=== PATIENT | male | born 1940 | race Caucasian/White ===

== ENCOUNTER 2017-08-10 08:10 | Observation (INO) | payer OTHER ==
--- NOTE | 2017-08-10 08:24 | EDPHY ---
H & P Time Seen by Provider: 08/10/17 08:24 HPI/ROS: CHIEF COMPLAINT: Right leg weakness HISTORY OF PRESENT ILLNESS: Patient is a 77-year-old male brought here by EMS with concern for right leg weakness that started around 730 this morning. Patient states he was doing his normal activities this morning including physical therapy for his chronic hip and low back pain and developed sudden weakness in the right leg stating the leg"gave out". He has never had this happen before. He denies any pain, numbness or paresthesias associated with the weakness. Additionally denies any chest pain, shortness of breath, arm weakness or numbness, trouble speaking, dizziness, vision changes, ataxia. He has not been able to ambulate since then. According to EMS his blood sugar was above 200. He states he had just eaten prior to transport. He has no history of diabetes. He does have a history of hypertension and dyslipidemia. Denies any drug or alcohol use or smoking. He lives at home with his . REVIEW OF SYSTEMS: Constitutional: No fever, no chills. Eyes: No discharge. ENT: No sore throat. Cardiovascular: No chest pain, no palpitations. Respiratory: No cough, no shortness of breath. Gastrointestinal: No abdominal pain, no vomiting. Genitourinary: No hematuria. Musculoskeletal: No back pain. Skin: No rashes. Neurological: No headache. (Bimal Jc) Physical Exam: General Appearance: Alert and no distress. Eyes: Pupils equal and round no injection. Respiratory: Chest is nontender, lungs are clear to auscultation. Cardiac: regular rate and rhythm. Gastrointestinal: Abdomen is soft and nontender, no masses, bowel sounds normal. Musculoskeletal: Neck is supple and nontender. Equal strength and sensation in bilateral upper extremities with no ulnar drift. Equal grasp. Equal strength sensation and deep tendon reflexes in bilateral lower extremities. Patient was unsteady in his gait but able to ambulate. Extremities have full range of motion and are nontender. Skin: No rashes or lesions. Neuro: Cranial nerves grossly intact. Pupils PERRLA with no nystagmus. Alert and oriented x3. Ambulatory (Bimal Jc) Constitutional: Initial Vital Signs Temperature (C) 36.7 C 08/10/17 08:15 Heart Rate 84 08/10/17 08:15 Respiratory Rate 18 08/10/17 08:15 Blood Pressure 137/82 H 08/10/17 08:15 O2 Sat (%) 93 08/10/17 08:15 O2 Delivery Mode Room Air Allergies/Adverse Reactions: amoxicillin Allergy (Verified 08/10/17 13:36) Penicillins Allergy (Verified 08/10/17 13:36) CILLINGS Allergy (Uncoded 05/11/10 15:58) Home Medications: Medication Instructions Recorded ASPIRIN [Easprin] 81 mg PO HS 05/11/10 Atenolol [Atenolol 100 mg] 100 mg PO DAILY 05/11/10 SIMVASTATIN [Zocor] 40 mg PO HS 05/11/10 Lisinopril/Hctz 20/12.5MG 1 ea PO DAILY 08/10/17 [Zestoretic/Prinzide 20/12.5MG (*)] Medical Decision Making - Diagnostics Imaging Results: Imaging Impressions Head CT 08/10/17 08:45 Impression: 1. No acute intracranial findings. If symptoms persist and clinical suspicion warrants, consider MRI. 2. Diffuse cerebral atrophy with periventricular and subcortical low attenuation consistent with chronic microvascular ischemic gliosis. Findings discussed with Bimal Jc 08/10/2017 at 9:41. ED Course/Re-evaluation: 0840: This patient was seen and examined by me. He presents with right lower extremity weakness, now resolved. Neurologic exam is normal, including LLE strength. c/w TIA. I agree with the assessment and plan. (Lolly Mckinney) 77-year-old male history of dyslipidemia and hypertension here with sudden onset of right lower extremity weakness. Time of arrival in the emergency room he has no focal deficits on exam in particular no unilateral leg weakness and cranial nerves were grossly intact. CT scan of head noncontrast reveals no bleed or mass or signs of ischemia. Patient is able to ambulate but does feel slightly weak in the leg. Repeat exam again shows no weakness or decreased sensation and does have normal DTRs. Patient be admitted for further workup for possible TIA. He is agreeable with this plan. He was given aspirin in the emergency room. (Bimal Jc) Differential Diagnosis: Differential diagnosis includes though is not limited to cardiac dysrhythmia, CVA, TIA, GI bleed, sepsis, hypoglycemia. (Danforth,Lolly S) CVA, to car brain mass, electrolyte disturbance, cardiac arrhythmia (Bimal Jc) - Data Points Laboratory Results: Laboratory Results 08/10/17 08:12 08/10/17 08:12 08/10/17 08/10/17 08/10/17 10:19 08:12 08:12 WBC RBC Hgb Hct MCV MCH MCHC RDW Plt Count Sodium 142 mEq/L mEq/L (135-145) Potassium 3.7 mEq/L mEq/L (3.3-5.0) Chloride 103 mEq/L mEq/L (97-110) Carbon Dioxide 23 mEq/l mEq/l (22-31) Anion Gap 16 mEq/L mEq/L (8-16) BUN 29 mg/dL H mg/dL (7-23) Creatinine 0.8 mg/dL mg/dL (0.7-1.3) Estimated GFR > 60 Glucose 184 mg/dL H mg/dL (70-100) Hemoglobin A1c 5.9 % % (4.0-6.0) Estim Average Glucose 123 mg/dL mg/dL (68-126) Calcium 9.3 mg/dL mg/dL (8.5-10.4) POC Troponin I 0.01 ng/mL ng/mL (0.00-0.08) 08/10/17 08:12 WBC 6.76 10^3/uL 10^3/uL (3.80-9.50) RBC 4.71 10^6/uL 10^6/uL (4.40-6.38) Hgb 15.5 g/dL g/dL (13.7-17.5) Hct 45.9 % % (40.0-51.0) MCV 97.5 fL fL (81.5-99.8) MCH 32.9 pg pg (27.9-34.1) MCHC 33.8 g/dL g/dL (32.4-36.7) RDW 12.8 % % (11.5-15.2) Plt Count 212 10^3/uL 10^3/uL (150-400) Sodium Potassium Chloride Carbon Dioxide Anion Gap BUN Creatinine Estimated GFR Glucose Hemoglobin A1c Estim Average Glucose Calcium POC Troponin I Medications Given: Discontinued Medications Aspirin (Aspirin) 325 mg PO EDNOW ONE Stop: 08/10/17 11:21 Last Admin: 08/10/17 11:30 Dose: 325 mg Point of Care Test Results: Chemistry 08/10/17 10:19 POC Troponin I 0.01 ng/mL ng/mL (0.00-0.08) Departure - Departure Disposition: [facility] Inpatient Acute Clinical Impression: TIA (transient ischemic attack) Condition: Good
--- NOTE | 2017-08-10 09:40 | CPEKG ---
Heart Rate: 72 RR Interval: 833 P-R Interval: 176 QRSD Interval: 106 QT Interval: 404 QTC Interval: 443 P [place]: 43 QRS [place]: -32 T Wave [place]: 22 EKG Severity - ABNORMAL ECG - EKG Impression: SINUS RHYTHM EKG Impression: VENTRICULAR TRIGEMINY EKG Impression: PROBABLE LEFT ATRIAL ABNORMALITY EKG Impression: LEFT VENTRICULAR HYPERTROPHY Electronically Signed By: Lolly Mckinney 10-Aug-2017 15:24:27
[2017-08-10] MEDS ORDERED: ASPIRIN 325 MG TAB PO ONE (11:20)
[2017-08-10] MEDS ORDERED: ACETAMINOPHEN 325 MG TAB PO PRN (12:19)
[2017-08-10] MEDS ORDERED: ONDANSETRON DISINTEGRATING 4 MG TAB PO PRN (12:19)
[2017-08-10] MEDS ORDERED: ONDANSETRON 4 MG/2 ML VIAL IVP PRN (12:19)
--- NOTE | 2017-08-10 16:44 | PDGENHP ---
History and Physical - Chief Complaint Acute paresis - History of Present Illness Primary care provider: Dr. Ray Watson HPI: 77-year-old male presenting with acute paresis characterized as complete loss of motor strength located in his right lower extremity with onset of symptoms at 7:30 a.m. And duration approximately 15-20 minutes. The patient reports that the symptoms occurred after he had performed physical therapy stretching and they were associated with some mild paresthesias in the right lower extremity, some left hip pain, and resulted in inability to ambulate. The symptoms were very similar in character to those experienced approximately 25 years ago, for which the patient also underwent a thorough evaluation, and no particular etiology was discovered. Since that time, the patient has not had any appreciable symptoms in his right lower extremity, but he has been dealing with chronic left hip pain, for which he has received bursa steroid injection several months ago, aggressive physical therapy. Prior to the day of arrival, the patient had otherwise been doing well, and he reports that he engaged in his normal level of physical activity on 08/09, which included a 1 hr walk to the [facility] as well as an 80 min recumbent bike ride for exercise. History Information - Allergies/Home Medication List Allergies/Adverse Reactions: amoxicillin Allergy (Verified 08/10/17 13:36) Penicillins Allergy (Verified 08/10/17 13:36) CILLINGS Allergy (Uncoded 05/11/10 15:58) Home Medications: ASPIRIN [Easprin] 81 mg PO HS 05/11/10 [Last Taken 08/09/17] Atenolol [Atenolol 100 mg] 100 mg PO DAILY 05/11/10 [Last Taken 08/10/17] SIMVASTATIN [Zocor] 40 mg PO HS 05/11/10 [Last Taken 08/09/17] Lisinopril/Hctz 20/12.5MG [Zestoretic/Prinzide 20/12.5MG (*)] 1 ea PO DAILY [Last Taken 08/10/17] I have personally reviewed and updated: family history, medical history, social history, surgical history - Past Medical History hypertension, hyperlipidemia Additional medical history: Chronic left hip and lower back pain status post left trochanteric bursa injections as well as back injections approximately 3 years ago. Superficial vein thrombosis in the right lower extremity in June of 2015 - Surgical History Additional surgical history: [address] Cuellar demonstrating no significant coronary disease. Back steroid injection 3 years ago. Left trochanteric bursa steroid injection several months ago - Family History Additional family history: No coronary artery disease, no venous thromboembolism , no CVA - Social History Smoking Status: Never smoked Additional social history: Attempts to exercise on a daily basis but significant exertional exercise is limited secondary to left hip pain Review of Systems Review of Systems: ROS: 10pt was reviewed & negative except for what was stated in HPI & below Muscolosketal: Reports: joint pain (Left hip) Neurological: Reports: paresthesia, other (Right lower extremity paresis) Physical Exam Physical Exam: Temp Pulse Resp BP Pulse Ox 36.6 C 48 L 14 137/82 H 95 08/10/17 14:37 08/10/17 14:37 08/10/17 14:37 08/10/17 14:37 08/10/17 14:37 Constitutional: no apparent distress, appears nourished, not in pain Eyes: PERRL, anicteric sclera, EOMI Ears, Nose, Mouth, Throat: moist mucous membranes, hearing normal, ears appear normal, no oral mucosal ulcers Cardiovascular: other (Ectopic beats), No systolic murmur, No tachycardia, No edema Respiratory: no respiratory distress, no rales or rhonchi, clear to auscultation Gastrointestinal: normoactive bowel sounds, soft, non-tender abdomen, no palpable masses Musculoskeletal: other (Full range of motion right hip without any pain on internal or external rotation, no pain on flexion, mild tenderness to palpation over the left trochanteric bursa, no tenderness over the right trochanteric bursa) Neurologic: AAOx3, sensation intact bilaterally, CN II-XII Intact, other ( Slight tongue deviation to the right), No weakness (Motor strength 5/5 bilateral upper and lower extremities) Psychiatric: interacting appropriately, not anxious, not encephalopathic, thought process linear Lab Data & Imaging Review 08/10/17 08:12 08/10/17 08:12 WBC 6.76 10^3/uL (3.80-9.50) 08/10/17 08:12 RBC 4.71 10^6/uL (4.40-6.38) 08/10/17 08:12 Hgb 15.5 g/dL (13.7-17.5) 08/10/17 08:12 Hct 45.9 % (40.0-51.0) 08/10/17 08:12 MCV 97.5 fL (81.5-99.8) 08/10/17 08:12 MCH 32.9 pg (27.9-34.1) 08/10/17 08:12 MCHC 33.8 g/dL (32.4-36.7) 08/10/17 08:12 RDW 12.8 % (11.5-15.2) 08/10/17 08:12 Plt Count 212 10^3/uL (150-400) 08/10/17 08:12 Sodium 142 mEq/L (135-145) 08/10/17 08:12 Potassium 3.7 mEq/L (3.3-5.0) 08/10/17 08:12 Chloride 103 mEq/L (97-110) 08/10/17 08:12 Carbon Dioxide 23 mEq/l (22-31) 08/10/17 08:12 Anion Gap 16 mEq/L (8-16) 08/10/17 08:12 BUN 29 mg/dL (7-23) H 08/10/17 08:12 Creatinine 0.8 mg/dL (0.7-1.3) 08/10/17 08:12 Estimated GFR > 60 08/10/17 08:12 Glucose 184 mg/dL (70-100) H 08/10/17 08:12 Hemoglobin A1c 5.9 % (4.0-6.0) 08/10/17 08:12 Estim Average Glucose 123 mg/dL (68-126) 08/10/17 08:12 Calcium 9.3 mg/dL (8.5-10.4) 08/10/17 08:12 POC Troponin I 0.01 ng/mL (0.00-0.08) 08/10/17 10:19 Visualized and Interpreted EKG results: Yes EKG Interpretation: Positive for: other (Normal sinus mechanism with PVCs and trigeminy) Assessment & Plan Assessment: 77-year-old male presents with acute right lower extremity paresis possibly secondary to TIA Plan: 1. Possible TIA. Acute, new problem this provider, further workup indicated. Unilateral right lower extremity paresis without any other clearly identifiable etiology, suggestive of TIA -ABCD2 score of 4, conferring 4% 2 day stroke risk, 10% 90 day stroke risk -get urgent carotid ultrasounds, echocardiogram, particularly given patient's trigeminy -reviewed outside records including 07/09/2015 right lower extremity ultrasound demonstrating no DVT, superficial dorsal vein thrombosis, patient's current symptoms do not appear to be vascular in nature given his fully palpable dorsalis pedis pulses -hold on brain MRI given that patient's symptoms have completely resolved and it is unlikely to be secondary to CVA -monitor rhythm on telemetry -check lipid panel and hemoglobin A1c -patient is currently taking aspirin 81 on a daily basis, recommend increasing to 325 -continue on statin -get Neurology consultation in a.m. 2. Trigeminy. Present on EKG, unclear if this is patient's [place] rhythm -checking echocardiogram -obtain outside records from PCP office including baseline EKG 3. Chronic hip and lower back pain. Secondary to osteoarthritis, patient reports he has had a lower spine MRI within the past 6 months -order outside records from [facility] including most recent MRI to evaluate for possible lumbar spine etiology of his symptom, although this would be very unlikely given the patient's rapid resolution, somewhat clinically inconsistent with sciatic 4. Hypertension. Continue home medications Diet. Cardiac Prophylaxis. High risk patient, SCDs, hold pharm given potential of involving cerebrovascular process Code. Full Disposition. Anticipated discharge is 08/11, pending further workup as outlined above. I have discussed patient's presentation with Lesly Gates, hospitalist provider, she has signed out the patient to me for evaluation.
--- NOTE | 2017-08-10 16:56 | ECHO ---
[email or web address] [address] [address] Main: [phone] Fax: Transthoracic Echocardiogram Name: EVELIO LE MR#: [id number] Study Date: 08/10/2017 Study Time: 01:15 PM Date of : 1940 Age: 77 year(s) Height: 172.7 cm (68 in.) Weight: 86.18 kg (190 lb.) BSA: 2 m2 Gender: Male Examination: Echo Indication: eval TIA Image Quality: Contrast: Requested by: Edy Farley BP: 125 mmHg/61 mmHg Heart Rate: Rhythm: Indication: eval TIA Procedure Staff [employer] Production Manager: Yuliet Thorpe [facility] Reading Physician: Zayra Alicea MD Requesting Provider: Conclusions: Normal size left ventricle. No LV hypertrophy. Normal global systolic LV function. The ejection fraction is estimated to be 65-70 %. No regional wall motion abnormality. Normal size right ventricle. An agitated saline study was performed and was positive for intracardiac shunting. Mild mitral valve regurgitation is present. Mild tricuspid regurgitation is present. The pulmonary artery pressure is mildly increased. RVSP is 44mmHG.. No prior echo Measurements: Chambers Valvular Assessment AV/MV Valvular Assessment TV/PV Normal Normal Normal Name Value Range Name Value Range Name Value Range Ao Gaby (MM): 4.0 cm (2.2 cm-3.7 AV Vmax: 1.47 m/s (1 m/s-1.7 TR Vmax: 3.12 mm/s ( - ) cm) m/s) TR PGmax: 39 mmHg ( - ) IVSd (2D): 0.8 cm (0.6 cm-1.1 AV maxP mmHg ( - ) syst. PAP: 44 mmHg ( - ) cm) AV meanP mmHg ( - ) LVDd (2D): 5.6 cm (4.2 cm-5.9 MV E Vmax: 0.95 m/s ( - ) cm) MV A Vmax: 1.08 m/s ( - ) LVDs (2D): 3.2 cm (2.1 cm-4 MV E/A: 0.88 ( - ) cm) LVPWd (2D): 0.6 cm (0.6 cm-1 cm) LVEF (MOD4): 68 % (>=55 %) EF Range: 65-70 % Patient: EVELIO LE Study Date: 08/10/2017 Page 1 of 2 01:15 PM Continued Measurements: Chambers Valvular Assessment AV/MV Valvular Assessment TV/PV Name Value Name Value Name Value LADs: 4.7 cm MV E/E' Septal: 15.90 CVP (est.): 5 mmHg LADs Lon.7 cm MV E/E' Lateral: 14.30 LA Area: 23.3 cm2 Additional Vessels Name Value Ao Ascendin.6 cm Findings: Left Ventricle: Normal size left ventricle. No LV hypertrophy. Normal global systolic LV function. The ejection fraction is estimated to be 65-70 %. No regional wall motion abnormality. Right Ventricle: Normal size right ventricle. Normal RV function. Left Atrium: The left atrium is mildly dilated. An agitated saline study was performed and was positive for intracardiac shunting. Right Atrium: The right atrium is normal in size. Mitral Valve: Mild mitral annular calcification. Mild mitral valve regurgitation is present. Aortic Valve: Mild aortic cusp calcification is noted. The aortic valve is tri-leaflet. Trivial aortic valve regurgitation. No aortic valve stenosis is present. Tricuspid Valve: The tricuspid valve is normal in appearance and function. Mild tricuspid regurgitation is present. The pulmonary artery pressure is mildly increased. RVSP is 44mmHG.. Pulmonic Valve: The pulmonic valve is normal in appearance and function. Trivial pulmonic valve regurgitation. Aorta: The aorta is normal. Pericardium: No pericardial effusion. (No Signature Object) Patient: EVELIO LE Study Date: 08/10/2017 Page 2 of 2 01:15 PM [id number]
[2017-08-10] MEDS ORDERED: ATORVASTATIN CALCIUM 20 MG TAB PO SCH (21:00)
[2017-08-11] MEDS ORDERED: ATORVASTATIN CALCIUM 10 MG TAB PO SCH (09:00)
[2017-08-11] MEDS ORDERED: ASPIRIN 325 MG TAB PO SCH (09:00)
[2017-08-11] MEDS ORDERED: LISINOPRIL/HCTZ 20/12.5MG 1 EA TAB PO SCH (09:00)
[2017-08-11] MEDS ORDERED: CLOPIDOGREL BISULFATE 75 MG TAB PO SCH (09:00)
[2017-08-11 09:10] VITALS: BP 146/92
[2017-08-11] MEDS: ATENOLOL 100 MG TAB PO SCH ×2 (09:19→10:23)
--- NOTE | 2017-08-11 09:33 | GCON ---
[f rep st] CONSULTATION NEUROLOGIC CONSULTATION REFERRING PHYSICIAN: Edy Farley MD HISTORY: The patient is a 77-year-old gentleman whom I am asked to see in neurologic consultation re garding episode yesterday of right leg weakness. He has a several-month history of problems with his left hip and has had some intermittent treatments for that, and was doing some exercises yesterday w hen he developed abrupt, nonpainful weakness of the right leg to where he collapsed to the ground and fell, but did not have loss of consciousness. He said there was no warning and he could not move th e right leg at all initially. They called 911 and he was brought to the hospital for evaluation. In the emergency department, he was not documented to have any definite weakness. He has not had recur rence of weakness in the leg. The total duration of symptoms was probably about 30 minutes. He said he really is not sure when it changed, but he feels back to normal now in terms of strength. He did not have any chest pain, palpitations, or shortness of breath, and no paresthesias in the leg. Some 20 years ago, he said he collapsed and had somewhat of a similar presentation, but they never found anything specific and thought he might have just been hypotensive. He tells me he has some borderline diabetes, but otherwise works to control that. He has otherwise n ot experienced any similar neurologic complaints. REVIEW OF SYSTEMS: Unremarkable except for that noted above. PAST MEDICAL HISTORY: As outlined above, and also he is undergoing some evaluations for this left hi p and had a lumbar spine imaging through [facility], I believe within the last 6 months. There is a history of hypertension and cardiac disease. FAMILY HISTORY: Unremarkable. SOCIAL HISTORY: No smoking. No alcohol abuse. MEDICATIONS: At home, simvastatin 40 mg daily, lisinopril, atenolol, and aspirin. PHYSICAL EXAM: VITAL SIGNS: Blood pressure 125/76, pulse of 68, respirations 18, temperature 36.8. GENERAL: He is well developed, in no acute distress. EYES: Clear. NECK: Supple with no bruits o r masses. CARDIAC: Regular rate and rhythm. No murmur. NEUROLOGIC: He is oriented and has normal cognition. Pupils 3 mm and reactive. Extraocular movements intact. Normal facial sensation and st rength. Motor exam: Normal muscle bulk and tone with 5/5 strength and no abnormal movements. Sensa tion is preserved for temperature and light touch. He is not ataxic. His gait has been steady. Ref lexes are 1+. His head CT was unremarkable and carotid ultrasound shows no hemodynamically significant stenosis. E chocardiogram shows evidence of a small [id number] shunt with agitated saline consistent with a PF O. His LDL cholesterol is 79. IMPRESSION AND RECOMMENDATIONS: The patient has an NIH stroke scale of 0. Total unit time of 70 min utes. This event could certainly have been a transient ischemic attack with localization to the left anterior cerebral artery distribution producing isolated right leg weakness. The lack of pain or pa resthesias would argue against a radiculopathy on the right leg. He has risk factors of hypertension , borderline diabetes, and hyperlipidemia. I am recommending he have Plavix added to his aspirin. I would not recommend PFO closure for this gentleman at this point. I recommend more prolonged cardia c outpatient monitoring to look for any occult arrhythmias. He will continue statin therapy. If all else is stable, he can be discharged home today and have outpatient followup as needed. /[id number]/MODL
--- NOTE | 2017-08-11 11:44 | GDS ---
[f rep st] DISCHARGE SUMMARY DISCHARGE DIAGNOSES: 1. Transient ischemic attack. 2. History of pre diabetes. 3. History of hypertension. 4. History of dyslipidemia. 5. Right leg weakness related to #1. 6. Ventricular trigeminy seen on monitoring. 7. Chronic left hip pain. PROCEDURES: 1. On 08/10/2017, head CT, which showed diffuse cerebral atrophy without any acute findings. There is chronic microvascular ischemic gliosis. 2. 08/10/2017, echocardiogram which shows LVEF of 65-70. There is intracardiac shunting on agitated saline study, mild MR, mild TR, and RVSP of 44. 3. 08/10/2017, carotid Dopplers which showed no evidence of hemodynamically significant stenoses. CONSULTATIONS: Dr. Dav Ashton, of Neurology. BRIEF HISTORY: Please see dictated H and P by Dr. Arnold Farley for complete details. In brief, the patient is a 77-year-old male with a history of diabetes, borderline, hypertension, dyslipidemia, wh o reports a loss of motor strength in his right lower extremity at approximately 7:30 a.m. yesterday. His duration of symptoms was 15-20 minutes. He presented to the emergency department and was evalu ated for stroke. There were no acute findings. Neurology has evaluated and recommend starting Plavi x therapy. His statin therapy will be continued. His antihypertensive status will also be continued . HOSPITAL COURSE BY PROBLEM: 1. New possible TIA. He has been started on Plavix and aspirin. He will need outpatient cardiac mo nitoring for 30 days. 2. Possible PFO versus ASD on bubble study. He will be referred to for future evalua tion of this. 3. Hypertension. His blood pressure medications were continued. 4. Ventricular trigeminy. Possibly he will need adjustment of medications to try to suppress PVCs b gabriella. 5. Dyslipidemia. His LDL was checked and is 79. 6. Pre diabetes. His hemoglobin A1c was found to be 5.9% in this admission. PHYSICAL EXAMINATION: VITAL SIGNS: On day of discharge, blood pressure 146/92, heart rate 48, respi rations 18, O2 saturation 92% on room air, temperature 98.2 degrees Fahrenheit. IN GENERAL: He is a very pleasant male in no apparent distress. HEENT: Normocephalic, atraumatic. EYES: PERRL. HEAR T: Regular rate and rhythm. LUNGS: Clear. NEURO: No gross focal deficits detected. Total cholesterol 154, triglycerides 128, HDL 51, LDL 79. Telemetry reviewed reveals sinus rhythm with frequent PVCs. RESULTS PENDING: None. DIET: Cardiac. ACTIVITY: As tolerated. DISCHARGE MEDICATIONS: Please see med rec reconciliation. FOLLOWUP INSTRUCTIONS: 1. Thirty day air sampling and monitoring. 2. Follow up with Neurology. 3. Follow up with Dr. Watson, PCP. 4. Follow up with Cardiology, after monitoring. /[id number]/MODL
== END 2017-08-11 11:32 | disposition home or self-care (01) ==
LOC: EDUNIT# → F3N 14:20
PROVIDERS: ADMIT Internal Medicine; ATTEND Internal Medicine
DX: G45.9 Transient cerebral ischemic attack, unspecified (principal); R29.700 NIHSS score 0; R73.03 Prediabetes; R00.8 Other abnormalities of heart beat; R93.1 Abnormal findings on diagnostic imaging of heart and coronary circulation; I10 Essential (primary) hypertension; E78.5 Hyperlipidemia, unspecified; R53.1 Weakness; M25.552 Pain in left hip; G89.29 Other chronic pain; Z88.0 Allergy status to penicillin
CPT/HCPCS: 70450; 93005; 93306; 93880; 97161; 99285; G0378; G8978; G8979; G8980; 84484-PO

== ENCOUNTER → 2017-09-25 | Outpatient (CLI) | payer OTHER | LOC: FCPNEURO 07:29 | PROVIDERS: ATTEND Student in an Organized Health Care Education/Training Program | DX: G47.33 Obstructive sleep apnea (adult) (pediatric) (principal) ==

== ENCOUNTER 2018-08-22 10:57 | Emergency (ER) | payer OTHER | END 2018-08-22 15:46 | disposition home or self-care (01) ==